=== PATIENT | female | born 1985 | race Caucasian/White ===

== ENCOUNTER 2018-08-26 08:18 | Emergency (ER) | payer OTHER ==
[2015-11-14 16:26] VITALS: Wt 69.9 kg
[~2018-08-26 08:18] MED LIST: ACET-1718 PO; IBUP800T37 PO; PREN-127 PO
--- NOTE | 2018-08-26 08:20 | ER Report ---
History and Physical Time Seen By MD: 08:20 HPI/ROS CHIEF COMPLAINT: Foot injury HISTORY OF PRESENT ILLNESS: Patient is a 32-year-old female who was going downstairs to get coffee this morning when she tripped and fell down the steps. She states she has pain along her foot specifically along the 2nd metatarsal area. Patient has had a prior fracture from a similar injury. She did not require surgical fixation and instead was casted. She states that the pain pills similar to prior foot fracture. She denies any other injury. Allergies: Coded Allergies: No Known Drug Allergies (Unverified , 11/14/15) Home Meds Discontinued Reported Medications Vits W-Ca,Fe,Fa(<1MG) ( VITAMINS) 1 Each Tablet, 1 EACH PO DAILY, TAB 11/14/15 Discontinued Scripts Ibuprofen (IBUPROFEN) 800 Mg Tablet, 1 TAB PO Q8H PRN for pain, #30 TAB 0 Refills TAKE WITH FOOD EVERY 8 HOURS Prov:ANNIKA RUBY MD 11/14/15 Acetaminophen With Codeine # 3 (ACETAMINOPHEN-COD #3 TABLET) 1 Each Tablet, 1-2 EACH PO Q4H PRN for pain, #30 TAB 0 Refills Take 1-2 tablets as needed for pain no closer than every 4 hours. Prov:ANNIKA RUBY MD 11/14/15 Past Medical/Surgical History Prior left foot fracture Hx Smoking: No Smoking Status: Never Smoker Exposure to Second Hand Smoke?: No Constitutional Vital Sign - Last 24 Hours 08/26/18 08:22 Temp 97.9 Pulse 80 Resp 20 B/P (MAP) 94/72 Pulse Ox 95 O2 Delivery Room Air Physical Exam General appearance: alert no distress Left ankle: There is no significant swelling. There is no obvious deformity to the ankle. There is no tenderness to the lateral malleolus. Ankle joint is stable and there is no tenderness over the achilles tendon. The foot is noted for swelling and tenderness along primarily the 2nd metatarsal area. Neurologic exam: The patient has normal sensation distal to the injury. Vascular exam: Normal pulses and capillary refill in the foot [ ] DIFFERENTIAL DIAGNOSIS: After history and physical exam differential diagnosis was considered for foot injury including sprain, fracture, dislocation. Medical Decision Making EKG/Imaging Imaging FACILITY: [facility] PATIENT NAME: Leena Bartlett : 1985 MR: [id number] V: [id number] EXAM DATE: ORDERING PHYSICIAN: ROYA DELUCA TECHNOLOGIST: Location: [facility] - [place] Patient: Leena Bartlett : 1985 Visit/Account:[id number] Date of Sevice: 08/26/2018 Study: FOOT 3 VIEW LEFT Indication: Fall Comparison study: None available Findings: AP lateral and oblique views of the left foot demonstrates no evidence of acute bony abnormality. There is no evidence of lytic or blastic bony lesions. The phalanges and metatarsals are unremarkable. There is no evidence of significant abnormality of the tarsal bones. The visualized soft tissues and joint spaces are unremarkable. IMPRESSION: Unremarkable exam Report Dictated By: Wes Brown at 08/26/2018 8:51 AM Report E-Signed By: Wes Brown at 08/26/2018 8:53 AM WSN:[id number] ED Course/Re-evaluation ED Course 08/26/2018 8:28:25 am plan at this time will be x-ray of the left foot. Patient was offered pain medication but declined at this time. Decision to Disposition Date: Aug 26, 2018 Decision to Disposition Time: 09:03 Depart Departure Latest Vital Signs Vital Signs Date Time Temp Pulse Resp B/P (MAP) Pulse Ox O2 Delivery O2 Flow Rate FiO2 08/26/18 08:22 97.9 80 20 94/72 95 Room Air Impression: Primary Impression: Foot contusion Condition: Improved Disposition: HOME OR SELF-CARE New Scripts No Active Prescriptions or Reported Meds Patient Instructions: Foot Contusion (ED) Problem Qualifiers Primary Impression: Foot contusion Encounter type: initial encounter Laterality: left Qualified Codes: S90.32XA - Contusion of left foot, initial encounter ROYA DELUCA MD Aug 26, 2018 08:20
[2018-08-26 08:22] VITALS: BP 94/72
--- NOTE | 2018-08-26 08:58 | RADIOLOGY IMAGING REPORT ---
FACILITY: [facility] PATIENT NAME: Leena Bartlett : 1985 MR: [id number] V: [id number] EXAM DATE: ORDERING PHYSICIAN: ROYA DELUCA TECHNOLOGIST: Location: [facility] - [place] Patient: Leena Bartlett : 1985 Visit/Account:[id number] Date of Sevice: 08/26/2018 Study: FOOT 3 VIEW LEFT Indication: Fall Comparison study: None available Findings: AP lateral and oblique views of the left foot demonstrates no evidence of acute bony abnorm ality. There is no evidence of lytic or blastic bony lesions. The phalanges and metatarsals are unrem arkable. There is no evidence of significant abnormality of the tarsal bones. The visualized soft tissues and joint spaces are unremarkable. IMPRESSION: Unremarkable exam Report Dictated By: Wes Brown at 08/26/2018 8:51 AM Report E-Signed By: Wes Brown at 08/26/2018 8:53 AM WSN:[id number]
== END 2018-08-26 09:12 | disposition home or self-care (01) ==
LOC: ER 08:35
DX: S90.32XA Contusion of left foot, initial encounter (principal); W10.9XXA Fall (on) (from) unspecified stairs and steps, initial encounter
CPT/HCPCS: 99283